=== PATIENT | male | born 1990 | race Two or more races ===

== ENCOUNTER 2025-07-09 09:30 | Emergency (ER) | payer OTHER ==
[~2025-07-09] VITALS: Ht 185.4 cm; Wt 94.3 kg
[2025-07-09 09:52] VITALS: BP 127/82; O2SAT 98
[2025-07-09] MEDS ORDERED: ZESTRIL10 M1 PO (09:55)
[2025-07-09] MEDS ORDERED: FENOFIBRATE50 MG (09:55)
[2025-07-09 11:23] LABS: BASO % 0.3 % (0.1-1.2); EOS # 0.02 (0.04-0.54); EOS % 0.2 % (0.7-7.0); LYMPH # 1.76 (1.18-3.74); LYMPH % 17.4 % (19.3-53.1); MEAN PLATELET VOLUME 9.00 fl (9.4-12.4); MONO # 0.97 (0.24-0.82); MONO % 9.6 % (4.7-12.5); NEUT # 7.26 (1.56-6.13); NEUT % 71.5 % (34.0-71.1); RED CELL DISTRIBUTION WIDTH 10.7 % (11.6-14.4)
[2025-07-09] MEDS ORDERED: CEFTRIAXONE SODIUM 1,000 MG VIAL IM STA (11:58)
[2025-07-09 12:06] LABS: COVID-19 AG NEGATIVE (NEGATIVE)
[2025-07-09] MEDS ORDERED: AMOX1TAB5 PO (12:27)
== END 2025-07-09 13:22 | disposition home or self-care (01) ==
LOC: ER 09:30
DX: J03.90 Acute tonsillitis, unspecified (principal); Z20.822 Contact with and (suspected) exposure to COVID-19; Z91.013 Allergy to seafood